=== PATIENT | female | born 1970 | race Caucasian/White ===

== ENCOUNTER 2024-02-06 14:24 | Emergency (ER) | payer MEDICAID ==
[~2024-02-06] VITALS: Ht 157.5 cm; Wt 69.0 kg
[2024-02-06 14:27] VITALS: O2SAT 98
[2024-02-06] MEDS ORDERED: NAPR-1176 MT (15:49)
[2024-02-06] MEDS ORDERED: CYCL10TA21 MT (15:49)
[2024-02-06 16:02] VITALS: BP 131/83; PULSE 97; RESP 16; TEMP 36.55848; O2SAT 97
[2024-02-06] MEDS: HYDROXYZINE 25MG TABLET PO ONE (16:02)
[2024-02-06] MEDS: KETOROLAC 30MG/ML VIAL IM ONE (16:02)
== END 2024-02-06 16:08 | disposition home or self-care (01) ==
LOC: ER 14:24 → EDBD 14:24 → ER 16:08
DX: M54.50 Low back pain, unspecified (principal); M54.2 Cervicalgia; R25.1 Tremor, unspecified; V49.40XA Driver injured in collision with unspecified motor vehicles in traffic accident, initial encounter; Y93.89 Activity, other specified; Y92.410 Unspecified street and highway as the place of occurrence of the external cause; Y99.8 Other external cause status
CPT/HCPCS: 99283; 72100; 96372; J1885